=== PATIENT | male | born 1945 | race Caucasian/White ===

== ENCOUNTER 2018-04-20 06:42 | Day surgery (SDC) | payer MEDICARE ==
[~2018-04-20 06:42] MED LIST: CENTRUM SILVER1 TA2; PRILOSEC20 MG PO; ZYRTEC10 MG PO
[2018-04-20] MEDS ORDERED: MOTRIN200 MG PO (10:22)
[2018-04-20 10:43] VITALS: BP 176/97
== END 2018-04-20 11:05 | disposition home or self-care (01) ==
LOC: ORM 06:42
PROVIDERS: ATTEND Surgery
PROC: 0HBLXZZ Excision of Left Lower Leg Skin, External Approach (ICD-10-PCS; principal; 2018-04-20)
DX: C44.729 Squamous cell carcinoma of skin of left lower limb, including hip (principal); C44.719 Basal cell carcinoma of skin of left lower limb, including hip; L82.1 Other seborrheic keratosis

== ENCOUNTER 2020-08-16 16:55 | Emergency (ER) | payer MEDICARE ==
[~2020-08-16] VITALS: Ht 180.3 cm; Wt 100.0 kg
[~2020-08-16 16:55] MED LIST changes: +MOTRIN200 MG PO
[2020-08-16 18:37] VITALS: BP 149/92
== END 2020-08-16 21:25 | disposition left against medical advice (07) ==
LOC: ED 16:55 → LWOBS 20:57
DX: Z53.21 Procedure and treatment not carried out due to patient leaving prior to being seen by health care provider (principal)